=== PATIENT | male | born 1985 ===

== ENCOUNTER 2016-12-18 22:56 | Observation (INO) | payer SELFPAY ==
[2016-12-18 23:05] VITALS: RESP 16
[2016-12-18 23:29] LABS: BASO % 0.6 % (0.0-2.0); EOS % 0.2 % (0.0-4.0); HEMATOCRIT 44.3 % (35.0-51.0); LYMPH # 1.6 K/uL (1.0-4.3); LYMPH % 27.3 % (20.0-40.0); MEAN CORPUSCULAR HEMOGLOBIN 30.2 pg (27.0-31.0); MEAN CORPUSCULAR HGB CONC 33.2 g/dL (33.0-37.0); MEAN PLATELET VOLUME 8.8 fL (7.2-11.7); MONO # 0.5 K/uL (0.0-0.8); MONO % 9.1 % (0.0-10.0); NRBC % 0.1 % (0.0-2.0); RED CELL DISTRIBUTION WIDTH 13.6 % (11.5-14.5)
[2016-12-18 23:31] LABS: RBC URINE < 1 /hpf (0-3); URINE BILIRUBIN NEGATIVE (NEGATIVE); URINE BLOOD NEGATIVE (NEGATIVE); URINE COLOR Straw (YELLOW); URINE GLUCOSE (UA) NORMAL (Normal); URINE KETONE NEGATIVE (NEGATIVE); URINE LEUKOCYTE ESTERASE NEG Leu/uL (Negative); URINE PROTEIN NEGATIVE (NEGATIVE); URINE UROBILINOGEN NORMAL mg/dL (0.2-1.0); WBC URINE 1 /hpf (0-5)
[2016-12-18 23:38] LABS: CHLORIDE 100 mmol/L (98-107); POTASSIUM 4.1 mmol/L (3.6-5.2); SODIUM 147 mmol/L (132-148)
[2016-12-18 23:40] LABS: BILIRUBIN,TOTAL 0.6 mg/dL (0.2-1.3); CARBON DIOXIDE 29 mmol/L (22-30); GFR AFRICAN-AMERICAN > 60
[2016-12-18 23:41] LABS: ALB/GLOB RATIO 1.5 (1.0-2.1); ALKALINE PHOSPHATASE 75 U/L (38-126); ALT/SGPT 43 U/L (21-72); AST/SGOT 48 U/L (17-59); BLOOD UREA NITROGEN 9 mg/dL (9-20); CALCIUM 8.5 mg/dl (8.6-10.4); GLUCOSE,RANDOM 97 mg/dL (75-110); TOTAL PROTEIN 7.4 g/dL (6.3-8.3)
[2016-12-18 23:42] LABS: ALCOHOL SERUM 243 mg/dl (0-10)
--- NOTE | 2016-12-19 00:23 | C.PDOC ---
History Of Present Illness <Reggie Ramirez - Last Filed: 12/19/16 00:39> <Rojelio Penn - Last Filed: 12/21/16 10:04> Pt was BIBEMS due to public intoxication. (YanciAnnia anderseneliane Dunaway) History Per: Patient, EMS History/Exam Limitations: intoxication Onset/Duration Of Symptoms: Unknown (tonight) Current Symptoms Are (Timing): Still Present Suicide/Self Injury Attempted (Context): None Modifying Factor(s): Alcohol Severity: Severe Associated Symptoms: denies: Suicidal Thoughts, Suicidal Plan Additional History Per: Prior Records <Reggie Ramirez - Last Filed: 12/19/16 00:39> <Rojelio Penn - Last Filed: 12/21/16 10:04> Time Seen by Provider: 12/18/16 23:05 Chief Complaint (Nursing): Substance Abuse Past Medical History Reviewed: Historical Data, Nursing Documentation, Vital Signs - Medical History Other PMH: "Mood disorder" Family History: States: Unknown Family Hx - Social History Hx Alcohol Use: Yes Hx Substance Use: No - Immunization History Hx Tetanus Toxoid Vaccination: No <Reggie Ramirez - Last Filed: 12/19/16 00:39> Review Of Systems Review Of Systems: ROS cannot be obtained secondary to pt's inabilty to answer questions. <Reggie Ramirez - Last Filed: 12/19/16 00:39> Physical Exam - Physical Exam Appears: No Acute Distress, Other (AOB, intoxicated) Skin: Normal Color, Warm, Dry, No Rash Head: Atraumatic, Normacephalic Eye(s): bilateral: PERRL, Other (Nystagmus) Neck: Normal ROM, No Midline Cervical Tenderness, No Step Off Deformity, Supple Cardiovascular: Rhythm Regular Respiratory: Normal Breath Sounds, No Accessory Muscle Use Gastrointestinal/Abdominal: Soft, No Tenderness Back: No CVA Tenderness Extremity: Normal ROM, No Deformity Neurological/Psych: Eyes Open With Command, Slow To Respond With Command, Other (Moving all extremities) <Reggie Ramirez - Last Filed: 12/19/16 00:39> ED Course And Treatment - Laboratory Results Result Diagrams: 12/18/16 23:10 12/18/16 23:10 Interpretation Of Abnormal: Elevated alcohol level. Positive for PCP. O2 Sat by Pulse Oximetry: 98 Pulse Ox Interpretation: Normal <Reggie Ramirez E - Last Filed: 12/19/16 00:39> - Laboratory Results Result Diagrams: 12/18/16 23:10 12/18/16 23:10 <Rojelio Penn - Last Filed: 12/21/16 10:04> Medical Decision Making <Reggie Ramirez E - Last Filed: 12/19/16 00:39> <Rojelio Penn - Last Filed: 12/21/16 10:04> Medical Decision Making: pt sleeping [facility] ed course. at 6 am, noted to be awake, alert ambulatory, in nad. asking for d/c (Rojelio Penn) ED OBSERVATION Date of observation admission: 12/19/16 Time of observation admission: 23:30 <Reggie Ramirez E - Last Filed: 12/19/16 00:39> <Rojelio Penn - Last Filed: 12/21/16 10:04> - Observation admission statement Patient is being placed in observation because:: Alcohol and PCP intoxication. (Reggie Ramirez) - Goals of Observation Goals of observation are:: Sobriety (Reggie Ramirez) - Progress Note Progress Note: 12/19/16 04:16 Resting comfortably, no acute distress (Rojelio Penn) Disposition - Disposition Disposition Time: 00:40 <Reggie Ramirez - Last Filed: 12/19/16 00:39> <Rojelio Penn - Last Filed: 12/21/16 10:04> - Disposition Disposition: HOME/ ROUTINE Condition: STABLE - Clinical Impression Clinical Impression: Alcohol intoxication, PCP (phencyclidine) abuse Physician Patient Turnover Patient Signed Over To: Rojelio Penn Handoff Comments: to re-assess pt once sober. <Reggie Ramirez - Last Filed: 12/19/16 00:39>
[2016-12-19 03:47] VITALS: O2SAT 97
[2016-12-19 06:21] VITALS: BP 115/72; PULSE 80; TEMP 97.9
== END 2016-12-19 05:49 | disposition home or self-care (01) ==
LOC: C.ER 22:56 → C.9OBSV 12-19 00:24
PROVIDERS: ADMIT Emergency Medicine; ATTEND Emergency Medicine
DX: F16.10 Hallucinogen abuse, uncomplicated (principal); F39 Unspecified mood [affective] disorder; F10.120 Alcohol abuse with intoxication, uncomplicated; Y90.8 Blood alcohol level of 240 mg/100 ml or more
CPT/HCPCS: 36415; 80053; 80164; 81001; 85025; 99285; G0378; G0480